=== PATIENT | female | born 1975 | race Caucasian/White ===

== ENCOUNTER 2016-08-04 19:33 | Emergency (ER) | payer OTHER ==
[~2016-08-04 19:33] MED LIST: ALBUTEROL; ALBUTEROL SULF8.5 G2 IH; CEFDINIR300 M1 PO; CETIRIZINE HCL10 M1 PO; LORADAMED10 MG; NASONEX17 GM; NORCO 7.5/325 T1 TAB PO; PREDNISONE20 M1 PO; SINGULAIR; VENTOLIN HFA18 G2 INH; ZITHROMAX250 M1 PO
[2016-08-04 20:00] LABS: BASO % 1.2 % (0-2); BASO ABSOLUTE COUNT 0.1 tho/cmm (0.0-0.2); EOS % 12.5 % (0-7); EOSINOPHIL ABSOLUTE COUNT 0.5 tho/cmm (0.0-0.7); HCT-HEMATOCRIT 44.8 % (34.0-49.0); HGB-HEMOGLOBIN 15.6 gm/dl (12.0-15.5); IMMATURE GRANULOCYTES ABSOLUTE 0.01 tho/cmm (0-0.03); IMMATURE GRANULOCYTES PERCENT 0.2 % (0-0.3); LYMPH % 23.3 % (20-45); MCH (MEAN CORPUSCULAR HGB) 30.5 pg (28.0-32.0); MCHC MEAN CORPUSCULAR HGB CONC 34.8 % (32.0-36.0); MCV (MEAN CELL VOLUME) 87.5 fl (82.0-96.0); MONO % 14.4 % (0-12); MONOCYTE ABSOLUTE COUNT 0.6 tho/cmm (0.0-1.2); NEUTROPHILS % 48.4 % (40-80); PLATELET COUNT 180 tho/cmm (150-450); RED BLOOD COUNT 5.12 mil/cmm (4.00-5.20); RED CELL DISTRIBUTION WIDTH 13.1 % (12.4-16.4); WHITE BLOOD COUNT 4.2 tho/cmm (4.0-10.0)
[2016-08-04 20:11] LABS: ANION GAP 8 mmol/L (0-20); BLOOD UREA NITROGEN 8 mg/dl (6-24); CALCIUM 8.3 mg/dl (8.5-10.5); CARBON DIOXIDE-VENOUS 26 mmol/L (22-32); CHLORIDE 109 mmol/l (96-110); CREATININE 0.83 mg/dl (0.50-1.10); GLUCOSE 87 mg/dL (70-110); SODIUM 139 mmol/L (135-145); eGFR VALUE FOR BLACK >90 mL/Min
[2016-08-04 20:15] LABS: POTASSIUM 4.1 mmol/L (3.7-5.1)
[2016-08-04 20:16] LABS: PREGNANCY-SERUM NEGATIVE (NEGATIVE)
[2016-08-04] MEDS ORDERED: PROAIR HFA8.5 GM INH (21:17)
[2016-08-04] MEDS ORDERED: PREDNISONE50 M1 PO (21:17)
[2016-08-04] MEDS ORDERED: VIBRAMYCIN100 M1 PO (21:28)
== END 2016-08-04 21:52 ==
LOC: EDMED 19:33
PROVIDERS: Emergency Medicine
DX: J45.901 Unspecified asthma with (acute) exacerbation (principal); J20.9 Acute bronchitis, unspecified; F17.200 Nicotine dependence, unspecified, uncomplicated; Z98.890 Other specified postprocedural states
CPT/HCPCS: J2930